=== PATIENT | female | born 1975 | race African-American/Black ===

== ENCOUNTER 2018-07-30 11:43 | Emergency (ER) | payer BC, MEDICAID ==
[~2018-07-30] VITALS: Ht 167.6 cm; Wt 91.0 kg
[2018-07-30] MEDS ORDERED: KETOROLAC 60MG/2ML VIAL IM STA (11:54)
[2018-07-30 13:48] VITALS: BP 102/74
== END 2018-07-30 13:50 | disposition home or self-care (01) ==
LOC: ER 11:43
DX: S20.219A Contusion of unspecified front wall of thorax, initial encounter (principal); S10.83XA Contusion of other specified part of neck, initial encounter; V49.49XA Driver injured in collision with other motor vehicles in traffic accident, initial encounter; Y93.89 Activity, other specified; Y92.410 Unspecified street and highway as the place of occurrence of the external cause
CPT/HCPCS: 71045; 72040; 81025; 93005; 96372; 99283; J1885

== ENCOUNTER 2018-12-30 06:09 | Emergency (ER) | payer BC, MEDICAID ==
[~2018-12-30] VITALS: Ht 167.6 cm; Wt 95.0 kg
[2018-12-30 07:58] LABS: CLARITY URINE CLEAR (CLEAR); COLOR URINE YELLOW (YELLOW); KETONES URINE TRACE (NEGATIVE); LEUKOCYTE ESTERASE URINE 2+ (NEGATIVE); NITRITE URINE NEGATIVE (NEGATIVE); OCCULT BLOOD URINE NEGATIVE (NEGATIVE); PROTEIN URINE NEGATIVE (NEGATIVE); SPECIFIC GRAVITY URINE 1.024 (1.005-1.030); UROBILINOGEN URINE 0.2 E.U./dL (0.2-1.0)
[2018-12-30 09:54] VITALS: BP 122/84
== END 2018-12-30 09:55 | disposition home or self-care (01) ==
LOC: ER 06:09
DX: R00.2 Palpitations (principal); N39.0 Urinary tract infection, site not specified; F41.9 Anxiety disorder, unspecified; F17.290 Nicotine dependence, other tobacco product, uncomplicated; K21.9 Gastro-esophageal reflux disease without esophagitis; Z98.890 Other specified postprocedural states
CPT/HCPCS: 81003; 81025; 93005; 99284